=== PATIENT | male | born 1990 | race Caucasian/White ===

== ENCOUNTER 2016-07-12 15:26 | Emergency (ER) | payer BC ==
[2016-07-12] MEDS ORDERED: LIDOCAINE 1% MDV 20 ML ONE (17:36)
[2016-07-12] MEDS ORDERED: TDaP 0.5 ML VIAL IM.VACC ONE (17:37)
[2016-07-12] MEDS ORDERED: ONDANSETRON ODT 4 MG TAB ONE (18:34)
== END 2016-07-12 18:48 | disposition home or self-care (01) ==
LOC: ER 15:26
CPT/HCPCS: 96372